=== PATIENT | female | born 1980 | race Caucasian/White ===

== ENCOUNTER 2022-04-03 10:22 | Outpatient (CLI) | payer BC | END 2022-04-03 10:23 | disposition home or self-care (01) | LOC: CSHMAMMO 10:22 | PROVIDERS: ATTEND Obstetrics & Gynecology | DX: Z12.31 Encounter for screening mammogram for malignant neoplasm of breast (principal) | CPT/HCPCS: 77063; 77067 ==

== ENCOUNTER 2023-05-06 11:41 | Outpatient (CLI) | payer BC | END 2023-05-06 11:42 | disposition home or self-care (01) | LOC: CSHMAMMO 11:41 | PROVIDERS: ATTEND Obstetrics & Gynecology | DX: Z12.31 Encounter for screening mammogram for malignant neoplasm of breast (principal) | CPT/HCPCS: 77063; 77067 ==

== ENCOUNTER 2024-07-21 11:45 | Outpatient (CLI) | payer BC | END 2024-07-21 11:46 | disposition home or self-care (01) | LOC: CSHMAMMO 11:45 | PROVIDERS: ATTEND Obstetrics & Gynecology | DX: Z12.31 Encounter for screening mammogram for malignant neoplasm of breast (principal) | CPT/HCPCS: 77063; 77067 ==

== ENCOUNTER 2025-08-03 10:42 | Outpatient (CLI) | payer BC | END 2025-08-03 10:43 | disposition home or self-care (01) | LOC: CSHMAMMO 10:42 | PROVIDERS: ATTEND Obstetrics & Gynecology | DX: Z12.31 Encounter for screening mammogram for malignant neoplasm of breast (principal); R92.1 Mammographic calcification found on diagnostic imaging of breast | CPT/HCPCS: 77063; 77067 ==

== ENCOUNTER 2025-08-09 08:31 | Outpatient (CLI) | payer BC | END 2025-08-09 08:32 | disposition home or self-care (01) | LOC: CSHMAMMO 08:31 | PROVIDERS: ATTEND Obstetrics & Gynecology | DX: R92.1 Mammographic calcification found on diagnostic imaging of breast (principal) | CPT/HCPCS: G0279 ==